=== PATIENT | male | born 1985 | race Caucasian/White ===

== ENCOUNTER 2016-08-27 18:47 | Emergency (ER) | payer BC, MEDICARE ==
[2016-08-27 19:21] LABS: Bilirubin Negative (Negative); Blood, Urine Negative (Negative); Clarity Clear (Clear); Glucose, Urine (Dipstick) Negative (Negative); Leukocyte Negative (Negative); Nitrite Negative (Negative); Protein, Urine (Dipstick) Negative (Neg-Trace); Specific Gravity, Urine 1.015 (1.005-1.030); Urobilinogen 0.2 mg/dL (0.2-1.0); pH, Urine 6.5 (5.0-9.0)
[2016-08-27] MEDS ORDERED: cefTRIAXone\\ROCEPHIN 250 MG VIAL ONE (20:01)
[2016-08-27] MEDS ORDERED: Lidocaine 1% 20 ML MDV ONE (20:01)
[2016-08-27] MEDS ORDERED: Azithromycin 250 MG TAB ONE (20:01)
== END 2016-08-27 20:34 | disposition home or self-care (01) ==
LOC: MADERS 18:47
DX: R30.0 Dysuria (principal); F31.9 Bipolar disorder, unspecified; F41.9 Anxiety disorder, unspecified; F90.9 Attention-deficit hyperactivity disorder, unspecified type; F17.210 Nicotine dependence, cigarettes, uncomplicated
CPT/HCPCS: 81003; 87070; 87086; 87491; 87591; 96372; J0696; J2001